=== PATIENT | male | born 1940 | race Caucasian/White ===

== ENCOUNTER 2022-02-01 08:44 | Outpatient (CLI) | payer MEDICARE, SELFPAY ==
[2022-02-01 14:44] LABS: Chloride* 105 mmol/L (96-114); Sodium* 140 mmol/L (135-149)
[2022-02-01 15:43] LABS: Blood Urea Nitrogen* 17 mg/dL (7-30); Calcium* 9.2 mg/dL (8.4-10.6); Carbon Dioxide* 26 mmol/L (20-32); Cholesterol* 111 mg/dL (90-199); Creatinine* 0.8 mg/dL (0.5-1.5); Estimated Glomerular Filt Rate 88 ml/min; Glucose* 132 mg/dL (60-115); HDL Cholesterol* 33 mg/dL (>=40); LDL Cholesterol Calculated 53 mg/dL (<100); Potassium* 4.8 mmol/L (3.6-5.1); Triglycerides* 125 mg/dL (40-149)
== END 2022-02-01 08:45 | disposition home or self-care (01) ==
PROVIDERS: PCP Family Medicine; Visit Provider Family Medicine
DX: Z00.00 Encounter for general adult medical examination without abnormal findings (principal); I10 Essential (primary) hypertension; E78.5 Hyperlipidemia, unspecified; Z13.0 Encounter for screening for diseases of the blood and blood-forming organs and certain disorders involving the immune mechanism; Z13.1 Encounter for screening for diabetes mellitus
CPT/HCPCS: 80048; 80061

== ENCOUNTER 2022-12-27 09:05 | Outpatient (CLI) | payer MEDICARE, SELFPAY | END 2022-12-27 09:06 | disposition home or self-care (01) | LOC: LONREF 09:06 | PROVIDERS: PCP Family Medicine; Visit Provider Family Medicine | DX: Z01.818 Encounter for other preprocedural examination (principal) | CPT/HCPCS: 80048 ==

== ENCOUNTER 2023-01-30 07:56 | Outpatient (CLI) | payer MEDICARE, SELFPAY | END 2023-01-30 07:57 | disposition home or self-care (01) | PROVIDERS: PCP Family Medicine; Visit Provider Family Medicine | DX: I10 Essential (primary) hypertension (principal); E78.5 Hyperlipidemia, unspecified | CPT/HCPCS: 80061 ==

== ENCOUNTER 2024-02-24 07:12 | Emergency (ER) | payer MEDICARE, SELFPAY ==
[2024-02-24 07:15] VITALS: BP 128/86; PULSE 92; RESP 18; TEMP 36.9; O2SAT 96; BMI 31.0
--- NOTE | 2024-02-24 07:36 | CRLHL7_ITS ---
For Patients: As a result of the Century Cures Act, medical imaging exams and procedure reports are released immediately into your electronic medical record. You may view this report before your referring provider. If you have questions, please contact your health care provider. INDICATION: Dizziness. COMPARISON: None. TECHNIQUE: Noncontrast CT head. FINDINGS: Moderate generalized volume loss. Patchy low-attenuation change within the white matter consistent with chronic deep white matter small vessel ischemic changes. No acute intracranial hemorrhage, acute infarct, mass effect, or fracture. No midline shift. No abnormal ventricular dilatation. Normal calvarium and skull base. Visualized paranasal sinuses and mastoid air cells are clear. Dolichoectasia of the basilar artery. Bilateral orbits are unremarkable. Normal appearing sella. Visualized paranasal sinuses mastoid air cells are unremarkable. IMPRESSION: 1. No acute intracranial abnormality 2. Moderate generalized volume loss. Chronic deep white matter small vessel ischemic changes Please note that all CT scans at this facility use dose modulation, iterative reconstruction, and/or weight-based dosing when appropriate to reduce radiation dose to as low as reasonably achievable. Dictated by Elmer Cox MD @ 02/24/2024 8:32:19 AM (Electronically Signed)
--- NOTE | 2024-02-24 07:36 | ED.DIZZY ---
HPI - Dizziness General Date Seen: 02/24/24 <Ha Romy Mainor - Last Filed: 02/24/24 07:56> Chief Complaint: Dizziness/Vertigo <Ha Romy Mainor - Last Filed: 02/24/24 07:56> Stated Complaint: dizzy x's 2 days <Ha Romy Mainor, - Last Filed: 02/24/24 07:56> Time Seen by Provider: 02/24/24 07:34 <Ha Stanton Mainor, - Last Filed: 02/24/24 07:56> Source: patient <Ha Hayward DO - Last Filed: 02/24/24 07:56> Mode of arrival: ambulatory <Ha Romy Mainor - Last Filed: 02/24/24 07:56> Limitations: no limitations <Ha Hayward - Last Filed: 02/24/24 07:56> History of Present Illness HPI Narrative: Patient is an 83-year-old male presenting to emergency department for dizziness. States symptoms started about 2 days ago. Denies having symptoms like this before. He notices his symptoms mostly when he is up moving around and states it is hard from walking a straight line. Symptoms improved greatly when he sits down or lays down. Also notices worsening of the symptoms when he rolls over in bed. Symptoms are and it is worse when he 1st gets up out of bed and may improve over time but never fully go away until he lays back down. Is unsure if he is dehydrated. Does feel like his head has a full feeling to it while laying in the bed. Denies any lightheadedness. Describes the dizziness as feel like he is on a boat. No history of strokes. His states he has been otherwise acting normally. Denies fevers, chills, headache, vision changes, weakness, numbness, chest pain, abdominal pain. Denies any recent viral symptoms. No other concerns noted <Ha Clemensdonte - Last Filed: 02/24/24 07:56> Related Data Home Medications: Home Medications ?Medication ?Instructions ?Recorded ?Confirmed aspirin 81 mg tablet,delayed 81 mg PO DAILY 02/01/22 02/24/24 release atorvastatin 40 mg tablet 40 mg PO .Bedtime 02/01/22 02/24/24 metoprolol tartrate 25 mg tablet 25 mg PO BID 02/01/22 02/24/24 terazosin 5 mg capsule 5 mg PO .Bedtime 02/01/22 02/24/24 Previous Rx's ?Medication ?Instructions ?Recorded metformin 500 mg tablet 500 mg PO BID #180 tabs 01/30/23 <Ha Hayward DO - Last Filed: 02/24/24 07:56> Allergies/Adverse Reactions: Allergies Allergy/AdvReac Type Severity Reaction Status Date / Time No Known Allergies Allergy Unknown Verified 02/24/24 07:20 <Ha Hayward DO - Last Filed: 02/24/24 07:56> Review of Systems Status of ROS: Reports: 10 or more systems reviewed and unremarkable except as noted in History and below <Ha Hayward DO - Last Filed: 02/24/24 07:56> [facility] Medical History: Medical History Hyperlipidemia ?E78.5 - Hyperlipidemia, unspecified (ICD-10) Hypertension ?I10 - Essential (primary) hypertension (ICD-10) History of esophageal dilatation ?Z98.890 - Other specified postprocedural states (ICD-10) <Ha Hayward DO - Last Filed: 02/24/24 07:56> Surgical History: Surgical History S/P right inguinal hernia repair ?Z98.890 - Other specified postprocedural states (ICD-10) ?Z87.19 - Personal history of other diseases of the digestive system (ICD-10) Status post transurethral resection of prostate (02/18/13) ?Z90.79 - Acquired absence of other genital organ(s) (ICD-10) Status post coronary artery stent placement ?Z95.5 - Presence of coronary angioplasty implant and graft (ICD-10) History of excision of Zenker's diverticulum ?Z98.890 - Other specified postprocedural states (ICD-10) ?Z87.19 - Personal history of other diseases of the digestive system (ICD-10) History of arthroplasty of both knees ?Z96.653 - Presence of artificial knee joint, bilateral (ICD-10) <Ha Hayward DO - Last Filed: 02/24/24 07:56> Social History: Social History Smoking Status: Former smoker Do you use any of these nicotine containing products: None Second hand tobacco smoke exposure: No How often do you have a drink containing alcohol: 2-4 times a month How often do you have six or more drinks on one occasion: Never AUDIT-C Alcohol total score: 2 Non-prescribed substance use: denies use service: Yes <Ha Hayward DO - Last Filed: 02/24/24 07:56> Exam Narrative: Exam Narrative: Const: Well-nourished, Well-developed, in mild distress Eyes: PERRL, no conjunctival injection, and symmetrical lids HENT: Atraumatic external nose and ears. Moist mucous membranes. Neck: Symmetric, trachea midline, No thyromegaly. CVS: RRR, No murmurs or gallops. Peripheral pulses 2+ and equal in all extremities RESP: Unlabored respiratory effort. Clear to auscultation bilaterally. GI: Nontender/Nondistended, No rebound or guarding. MSK:Extremities w/o deformity, Normal Active ROM Skin: Warm, Dry. No rashes or lesions. Neuro: Normal Muscle tone, Cranial nerves 2-12 grossly intact, normal sckg-ft-seuf, normal [id number], normal gait, normal strength 5/5 upper lower extremities bilaterally, normal sensation upper and lower extremities bilaterally, normal rapid alternating movements. Psych: Awake, Alert, & Oriented x3. Appropriate mood and affect. <Ha Hayward DO - Last Filed: 02/24/24 07:56> Const: Vital Signs, click to edit/add: Vital Signs - 24 hr 02/24/24 07:15 Temperature 98.4 F Pulse Rate [Pulse Oximeter] 92 Respiratory Rate 18 Blood Pressure [Ri ght Upper Arm] 128/86 Pulse Oximetry 96 Oxygen Delivery Me thod Room Air <Ha Hayward DO - Last Filed: 02/24/24 07:56> Vital Signs, click to edit/add: Vital Signs - 24 hr 02/24/24 07:15 Temperature 98.4 F Pulse Rate [Pulse Oximeter] 92 Respiratory Rate 18 Blood Pressure [Ri ght Upper Arm] 128/86 Pulse Oximetry 96 Oxygen Delivery Me thod Room Air <Kojo Narayan MD - Last Filed: 02/24/24 08:41> Course Reevaluation(s) Reevaluation #1: Patient continues have a mild vertigo. His workup is otherwise unremarkable. He is instructed on the Bran maneuver and will be discharged per my colleagues recommendations. <Kojo Narayan MD - Last Filed: 02/24/24 08:41> Vital Signs Vital signs: Initial Vital Signs Temperature 98.4 F 02/24/24 07:15 Temperature Source Temporal Artery Scan 02/24/24 07:15 Pulse Rate 92 02/24/24 07:15 Respiratory Rate 18 02/24/24 07:15 Blood Pressure 128/86 02/24/24 07:15 Blood Pressure Mean 100 02/24/24 07:15 Blood Pressure Position Sitting 02/24/24 07:15 Pulse Oximetry 96 02/24/24 07:15 Oxygen Delivery Method Room Air 02/24/24 07:15 Vital Signs Temperature 98.4 F 02/24/24 07:15 Pulse Rate 92 02/24/24 07:15 Respiratory Rate 18 02/24/24 07:15 Blood Pressure 128/86 02/24/24 07:15 Pulse Oximetry 96 02/24/24 07:15 Oxygen Delivery Method Room Air 02/24/24 07:15 Temperature 98.4 F 02/24/24 07:15 Pulse Rate 92 02/24/24 07:15 Respiratory Rate 18 02/24/24 07:15 Blood Pressure 128/86 02/24/24 07:15 Pulse Oximetry 96 02/24/24 07:15 Oxygen Delivery Method Room Air 02/24/24 07:15 <Ha Hayward DO - Last Filed: 02/24/24 07:56> Initial Vital Signs Temperature 98.4 F 02/24/24 07:15 Temperature Source Temporal Artery Scan 02/24/24 07:15 Pulse Rate 92 02/24/24 07:15 Respiratory Rate 18 02/24/24 07:15 Blood Pressure 128/86 02/24/24 07:15 Blood Pressure Mean 100 02/24/24 07:15 Blood Pressure Position Sitting 02/24/24 07:15 Pulse Oximetry 96 02/24/24 07:15 Oxygen Delivery Method Room Air 02/24/24 07:15 Vital Signs Temperature 98.4 F 02/24/24 07:15 Pulse Rate 92 02/24/24 07:15 Respiratory Rate 18 02/24/24 07:15 Blood Pressure 128/86 02/24/24 07:15 Pulse Oximetry 96 02/24/24 07:15 Oxygen Delivery Method Room Air 02/24/24 07:15 Temperature 98.4 F 02/24/24 07:15 Pulse Rate 92 02/24/24 07:15 Respiratory Rate 18 02/24/24 07:15 Blood Pressure 128/86 02/24/24 07:15 Pulse Oximetry 96 02/24/24 07:15 Oxygen Delivery Method Room Air 02/24/24 07:15 <Kojo Narayan MD - Last Filed: 02/24/24 08:41> Medications Administered Medications: Discontinued Medications Generic Name Dose Route Start Last Admin Trade Name Freq PRN Reason Stop Dose Admin Sodium Chloride 500 mls @ 1,000 mls/hr 02/24/24 07:34 02/24/24 08:00 0.9 % Sodium Chloride 500 Ml IV 02/24/24 08:03 1,000 mls/hr .Q30M ONE Administration Sodium Chloride 500 mls @ 1,000 mls/hr 02/24/24 07:34 02/24/24 08:01 0.9 % Sodium Chloride 500 Ml IV 02/24/24 08:03 1,000 mls/hr .Q30M ONE Administration <Ha Hayward DO - Last Filed: 02/24/24 07:56> Discontinued Medications Generic Name Dose Route Start Last Admin Trade Name Freq PRN Reason Stop Dose Admin Sodium Chloride 500 mls @ 1,000 mls/hr 02/24/24 07:34 02/24/24 08:00 0.9 % Sodium Chloride 500 Ml IV 02/24/24 08:03 1,000 mls/hr .Q30M ONE Administration Sodium Chloride 500 mls @ 1,000 mls/hr 02/24/24 07:34 02/24/24 08:01 0.9 % Sodium Chloride 500 Ml IV 02/24/24 08:03 1,000 mls/hr .Q30M ONE Administration <Kojo Narayan MD - Last Filed: 02/24/24 08:41> MDM - Dizziness MDM Narrative Medical decision making narrative: Patient is an 83-year-old male presenting to the emergency department for dizziness. The differential diagnosis of vertigo is broad and includes common etiologies such as menieres disease, labyrinthitis, benign positional vertigo, otitis media, etc. More serious etiologies considered include central etiologies such as tumor, intracerebral bleed, dissection, ischemic cerebral vascular accident. Considering symptoms I am more concerned that this is BPPV. Symptoms are mostly with movement and go away at rest. Seems unlikely to be a stroke. Considering he is asymptomatic currently and bed HEENT exam is not warranted. I will still do a head CT to rule out any intracranial abnormalities. Will also do CBC, magnesium, BMP, COVID/flu, troponin, EKG. Will also give him a L of normal saline for possible dehydration. Patient will be signed out to my colleague, Dr. Narayan, pending lab work imaging results. <Ha Hayward DO - Last Filed: 02/24/24 07:56> Lab Data Labs: Lab Results 02/24/24 02/24/24 Range/Units 07:35 07:48 WBC 7.39 (4.50-11.00) K/uL RBC 5.63 (4.30-5.90) m/uL Hgb 16.4 (13.5-17.5) gm/dL Hct 49.5 (37.0-53.0) % MCV 88 (80-100) fL MCH 29 (26-34) pg MCHC 33 (32-36) gm/dL RDW Coeff of Suman 13.5 (11.5-15.5) % Plt Count 247 (140-440) K/uL Neut % (Auto) 64.8 (42.0-72.0) % Lymph % (Auto) 20.8 (20-44) % Cottonwood % (Auto) 9.9 (0.0-11.0) % Eos % (Auto) 3.4 (0.0-7.0) % Baso % (Auto) 0.4 (0.0-3.0) % Neut # (Auto) 4.79 (1.7-7.0) K/uL Lymph # (Auto) 1.54 (0.90-2.90) K/uL [place] # (Auto) 0.70 (0.00-0.90) K/UL Eos # (Auto) 0.25 (0.00-0.50) K/uL Baso # (Auto) 0.03 (0.00-0.30) K/uL Abs Immat Gran (auto) 0.05 (0.00-0.30) K/uL Imm/Tot Granulo (auto) 0.7 % Sodium 136 (135-149) mmol/L Potassium 4.3 (3.6-5.1) mmol/L Chloride 104 (96-114) mmol/L Carbon Dioxide 22 (20-32) mmol/L Anion Gap 10 (7-15) mEq/L BUN 18 (7-30) mg/dL Creatinine 0.9 (0.5-1.5) mg/dL Estimated Creat Clear 54.01 Estimated GFR 84 ml/min Glucose 122 H (60-115) mg/dL Calcium 9.4 (8.4-10.6) mg/dL Magnesium 1.8 (1.5-2.6) mg/dL POC Troponin I 0.01 (0.01-0.04) ng/ml <Ha Hayward, DO - Last Filed: 02/24/24 07:56> Lab Results 02/24/24 02/24/24 Range/Units 07:35 07:48 WBC 7.39 (4.50-11.00) K/uL RBC 5.63 (4.30-5.90) m/uL Hgb 16.4 (13.5-17.5) gm/dL Hct 49.5 (37.0-53.0) % MCV 88 (80-100) fL MCH 29 (26-34) pg MCHC 33 (32-36) gm/dL RDW Coeff of Suman 13.5 (11.5-15.5) % Plt Count 247 (140-440) K/uL Neut % (Auto) 64.8 (42.0-72.0) % Lymph % (Auto) 20.8 (20-44) % Cottonwood % (Auto) 9.9 (0.0-11.0) % Eos % (Auto) 3.4 (0.0-7.0) % Baso % (Auto) 0.4 (0.0-3.0) % Neut # (Auto) 4.79 (1.7-7.0) K/uL Lymph # (Auto) 1.54 (0.90-2.90) K/uL Cottonwood # (Auto) 0.70 (0.00-0.90) K/UL Eos # (Auto) 0.25 (0.00-0.50) K/uL Baso # (Auto) 0.03 (0.00-0.30) K/uL Abs Immat Gran (auto) 0.05 (0.00-0.30) K/uL Imm/Tot Granulo (auto) 0.7 % Sodium 136 (135-149) mmol/L Potassium 4.3 (3.6-5.1) mmol/L Chloride 104 (96-114) mmol/L Carbon Dioxide 22 (20-32) mmol/L Anion Gap 10 (7-15) mEq/L BUN 18 (7-30) mg/dL Creatinine 0.9 (0.5-1.5) mg/dL Estimated Creat Clear 54.01 Estimated GFR 84 ml/min Glucose 122 H (60-115) mg/dL Calcium 9.4 (8.4-10.6) mg/dL Magnesium 1.8 (1.5-2.6) mg/dL POC Troponin I 0.01 (0.01-0.04) ng/ml <Kojo Narayan MD - Last Filed: 02/24/24 08:41> ECG Data Attestation: I personally reviewed and interpreted this ECG as follows: <Ha Hayward DO - Last Filed: 02/24/24 07:56> Prior ECG tracings: not available for review <Ha Hayward DO - Last Filed: 02/24/24 07:56> Interpretation: Normal sinus rhythm with a rate of 79 beats per minute, first-degree AV block, normal QT interval, normal axis, no ST or T-wave abnormalities. <Ha Hayward DO - Last Filed: 02/24/24 07:56> Discharge Plan Discharge Clinical Impression: Benign paroxysmal positional vertigo Qualifiers: Laterality: unspecified laterality Qualified Code(s): H81.10 - Benign paroxysmal vertigo, unspecified ear <Ha Hayward DO - Last Filed: 02/24/24 07:56> Instructions: Vertigo (DC) <DO Darron Galdamez Last Filed: 02/24/24 07:56> Additional Instructions: His symptoms seem most likely related to peripheral vertigo. If symptoms persist follow-up with your primary care provider. Return to emergency department for new or worsening symptoms <DO Darron Galdamez Last Filed: 02/24/24 07:56> Prescriptions: No Action atorvastatin 40 mg tablet 40 mg PO .Bedtime aspirin 81 mg tablet,delayed release (DR/EC) 81 mg PO DAILY metoprolol tartrate 25 mg tablet 25 mg PO BID terazosin 5 mg capsule 5 mg PO .Bedtime metformin 500 mg tablet 500 mg PO BID Qty: 180 0RF <DO Darron Galdamez Last Filed: 02/24/24 07:56> Follow Up/Referrals: Adan Holm MD [Primary Care Provider] - <Ha Hayward DO - Last Filed: 02/24/24 07:56> Stand Alone Forms: [facility] Info Instructions <DO Darron Galdamez Last Filed: 02/24/24 07:56>
--- OUTSIDE RECORDS SUMMARY | 2024-02-24 07:46 | XMS_ITS | Continuity of Care Document ---
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 Name Role Phone Efrain Cox MD Unavailable Unavailable Allergies, Adverse Reactions, Alerts Substance Reaction Status Criticality No Known Allergies Active No Inform ation Medications Medication Instructions Dosage Effective Dates (start - stop) Status Comments omeprazole 20 mg tablet,delayed release take 1 by Oral route every day 1 - Active pravastatin 40 mg tablet take 1 tablet by oral route every day 40 MG - Active aspirin 81 mg tablet,delayed release take 1 tablet by oral route every day 81 MG - Active terazosin 10 mg Cap Take 1 tablet by thierry th daily - Active Toprol XL 50 mg 24 hr Tab Take 1 tablet by mouth daily - Active Procedures Procedure Date Ugi Endo; Dx W/wo Collec Specm 18 Ugi Endo; W/insrt Guide Wire Colonoscopy Flex; W/remov Les- 15 Colonoscopy W/Submucosal Injection Level Iv-surg Path Gross/micro 15 Ugi Endo; W/insrt Guide Wire Advance Directives Directive Yes / No Effective Date File Name No Information Encounters Encounter Description Practice Location Reason(s) For Visit Diagnoses Date Provider Providers Copied on Encounter [facility], [address] [address], [place], [place], [id number], [place] tel:[phone] [facility] No Information 9 Brooke Zuniga. [address] [facility] [address], [facility] [address], [place], [id number], [place]. tel:[phone] [facility], [address] [address], [place], [place], [id number], [place] tel:[phone] [facility] Zenkers diverticulumDysp hagia, unspecifiedCough Diverticulum of esophagus, acquired 8 Brooke Zuniga. [address] [facility] [address], [facility] [address], [place], [id number], [place]. tel:[phone] Referring Provider: Saurabh Holm MD , [address] [place] [address], [address]. tel:[phone] [facility], [address] [address], [place], [place], [id number], [place] tel:[phone] [facility] Schatzki's ringZenker diverticulumEsop hageal obstructionDiver ticulum of esophagus, acquired 6 Val Hennessy. [address], [id number], [place]. tel:[phone] [facility] [place], [address] [address], [facility] [place], [address], [place] tel:[phone] [facility] Colon polypColon Cancer ScreeningPersona l History Colon PolypsBenign Neoplasm Colon Sep-1 5 Jakob Monroy. [address] [facility] [address], [facility] [address], [place], [id number], [place]. tel:[phone] [facility], [address] [address], [place], [place], [address], [place] tel:[phone] [facility] Esoph Stricture/aramis ki RingReflux EsophagitisZenke r's DiverticulumEsop h Stricture/aramis ki RingZenker's DiverticulumRefl ux Esophagitis Sep-0 0 Andrew Covarrubias. [address] [facility] [address], [place], [id number], [place]. tel:[phone] [facility] [address] [address], [place], [id number], [place] tel:[phone] [place] [facility] No Information 5 No Information Family History Family Member Type Diagnosis Age At Onset Sister Problem (finding) Alive and well Son Problem (finding) Alive and well Father Problem (finding) Mother Problem (finding) Daughter Problem (finding) Alive and well Payers Payer name Insurance type Covered republican ID Authoriza tion(s) No Information Social History Type Description Quantity Date Captured Comments Sex Male Smoking Status No Information Chief Complaint And Reason For Visit No Information Reason For Referral Reason For Referral No Information Plan Of Treatment Date Type Action Status Referral Ordered: referred to Sandeep Feliep MD Otolaryngology [facility] ordered Referral Ordered: referred to any ENT ordered History Of Present Illness Encounter Date Complaint History Of Prese nt Illness No Information Functional Status Date Functional Assessmen t No Information Instructions Date Instruction Additional Infor michaelion Colon Cancer Prevention Related to Colon polyp Colon Polyps Related to Colon polyp Assessments Type Assessment Date No Information Patient Care Teams Name Effective Dates (start - stop) Status Members No Information
--- OUTSIDE RECORDS SUMMARY | 2024-02-24 07:46 | XMS_ITS | Clinical Summary ---
Author Organization [employer] [facility] Address [place], [place] [address] Care Team Providers Care Infectious Disease Physician Name Role Phone Adan Holm MD Primary Care Provider [phone] Allergies No known active allergies Medications Medication Sig Dispensed Refills Start Date End Date Status aspirin 81 mg tablet Take 1 tablet by mouth once daily with a meal. 0 12/24/2012 Active metoprolol (LOPRESSOR) 50 mg tablet Take 0.5 tablets by mouth 2 times daily. As previously taking 0 12/24/2012 Active terazosin (HYTRIN) 5 mg capsuleIndications: BPH with urinary obstruction Take 1 capsule by mouth at bedtime. 90 capsule 3 01/11/2016 Active atorvastatin (LIPITOR) 40 mg tablet Take 1 tablet by mouth once daily. 0 07/26/2016 Active metFORMIN (GLUCOPHAGE) 500 mg tablet Take 1,000 mg by mouth once daily with a meal. Active Active Problems Problem Noted Date Diagnosed Date Coronary artery disease due to lipid rich plaque 11/25/2014 BPH (benign prostatic hypertrophy) with urinary obstruction 12/23/2012 Chest pain 12/23/2012 HTN (hypertension) 11/27/2009 Other and unspecified hyperlipidemia 11/27/2009 Resolved Problems Problem Noted Date Diagnosed Date Resolved Date CAD (coronary artery disease) 11/27/2009 11/25/2014 Immunizations Name Administration Dates Next Due Influenza, High-dose Inactivated 01/11/2016 Influenza, IIV3 (Age >=3 years) 01/11/2011 Pneumococcal Poly,23-Valent (Pneumovax) 03/21/20 03 Pneumococcal conj 13-Valent (Prevnar 13) 015 Td (Age >=7 Years) 04/12/2004 Tdap 11/25/2014 Family History Medical History Relation Name Comments Cancer Father 76 Other Mother old age Relation Name Status Comments Father Mother Social History Tobacco Use Types Packs/Day Years Used Date Smoking Tobacco: Former Cigarettes Smokeless Tobacco: Never Tobacco Cessation:Counseling Given: No Comments:quit at age 23 Alcohol Use Standard Drinks/Week Comments Yes 0 (1 standard drink = 0.6 oz pur e alcohol) occasional Social Connections Answer Date Recorded Frequency of Communication with Friends and Fami ly Not on file 04/05/2023 Sex and Gender Information Value Date Recorded Sex Assigned at Not on file Gender Identity Not on file Sexual Orientation Not on file Obstetrics History Last Filed Vital Signs Vital Sign Reading Time Taken Comments Blood Pressure 133/84 03/23/2018 12:22 PM ASSISTANT MANAGER/EMBALMER Pulse 64 03/23/2018 12:22 PM ASSISTANT MANAGER/EMBALMER Temperature 36.2 C (97.2 F) 03/23/2018 12:22 PM ASSISTANT MANAGER/EMBALMER Respiratory Rate 16 03/23/2018 12:22 PM ASSISTANT MANAGER/EMBALMER Oxygen Saturation 94% 03/23/2018 12:22 PM ASSISTANT MANAGER/EMBALMER Inhaled Oxygen Concentration - - Weight 101 kg (222 lb 10.6 oz) 03/23/2018 12:22 PM ASSISTANT MANAGER/EMBALMER Height 175.3 cm (5' 9) 03/23/2018 12:22 PM ASSISTANT MANAGER/EMBALMER Body Mass Index 32.88 03/23/2018 12:22 PM ASSISTANT MANAGER/EMBALMER Plan of Treatment Health Maintenance Due Date Last Done Comments Zoster (shingles) series for age 50+ (1 of 2) 1988 RSV vaccine for adults or pr egnancy (1 - 1-dose 75+ series) 2013 Depression screening for age 12+ 01/10/2017 01/11/20 16 BMI (ht and wt on same day) for age 18+ 07/26/2017 0 07/26/2016, 01/11/2016 Pneumococcal series for age 65+ (3 of 3 - PPSV23 or PCV20) 11/26/2019 11/25/2014, 03/21/2003 COVID-19 vaccine series ( - 2023- season) 2023 Influenza for age 65+ 12/03/2023 01/11/2016, 011 Tetanus booster 11/25/2024 11/25/2014, 04/12/2004 Tdap Completed 11/25/2014 Advance Directives * Full Code (Latest Code Status on File) Date Activated Date Inactivated Comments 03/23/2018 2:31 PM 03/23/2018 5:11 PM * Full Code Date Activated Date Inactivated Comments 12/22/2012 12:57 AM 12/25/2012 3:06 PM Care Teams Infectious Disease Physician Relationship Specialty Start Date End Date Adan Holm MD PCP - General Family Practice 03/20/18
--- OUTSIDE RECORDS SUMMARY | 2024-02-24 07:46 | XMS_ITS | Encounter Summary ---
Author Name [facility] Organization [facility] Address [address] [place] [id number] Care Team Providers Care Admissions Recruiter Name Role Phone DIONNE BABIN Primary Care Provider Tres bowman Insurance Providers: All historical and current Section Date Range: From patient's date of to the date document was created. This section includes the names of all active insurance providers for the patient. Insurance Provider Type of Coverage Plan Name Start of Policy Coverage End of Policy Coverage Group Number Member ID Insurance Provider's Telephone Number Policy Martinez's Name Patient's Relationship to Policy Martinez [facility] (WNR) MEDICARE ADVANTAGE MCR ([facility]) Apr 03, 2019 [id number] LENY DIAZ PATIENT [facility] (WNR) MEDICARE ADVANTAGE MCR ([facility]) Feb 01, 2015 [id number] LENY DIAZ PATIENT Selected Encounter This section includes the information on record at [place] for the Encounter. Date/Time Encounter Type Encounter Description Reason Provider Source Dec 27, 2023 10:55 AM Outpatient Encounter TELEPHONE TRIAGE SHERRILL MARISCAL Encounter Template Text not used by [place] Plan of Treatment: Future Appointments (+ 6 months) and Future Tests (+/- 45 days) The Plan of Treatment section includes future care activities for the patient from all [facility] treatmentfacilities. This section includes future appointments and future orders which are active, pending or scheduled. Future Appointments This section includes appointments that were scheduled to occur 6 months from the date of the Encounter, up to a maximum of 20 appointments. The data comes from all [place] treatment facilities. Appointment Date/Time Appointment Type Appointme nt Facility Name Mar 18, 2024 09:00 AM AMBULATORY - MEDICINE [facility] Social History: Smoking Status (Most current) and Tobacco Use (All prior to encounter date) This section includes the most current, and the historical, smoking and tobacco- related health factors from the [place] facility where the Encounter took place. Current Smoking Status This section includes the most current smoking, or tobacco-related health factor, from the [place] facility where the Encounter took place. Date/Time Current Smoking Status Comment Facil ity Feb 21, 2022 08:30 AM VA-TOBACCO FORMER USER [facility] Tobacco Use History This section includes a history of the smoking, or tobacco-related health factors, that were collected on or before the date of the Encounter. The data comes from the [place] facility where the Encounter took place. Date/Time Smoking Status/Tobacco Use Comment F acility Feb 21, 2022 08:30 AM VA-TOBACCO QUIT 15 YRS OR MORE [facility] Feb 15, 2021 09:30 AM VA-TOBACCO FORMER USER [facility] Feb 15, 2021 09:30 AM VA-TOBACCO QUIT 15 YRS OR MORE [facility] Jul 16, 2019 01:58 PM VA-TOBACCO FORMER USER [facility] Jul 16, 2019 01:58 PM VA-TOBACCO QUIT 15 YRS OR MORE [facility] Jun 11, 2018 09:50 AM VA-TOBACCO FORMER USER [facility] Jun 11, 2018 09:50 AM VA-TOBACCO QUIT 15 YRS OR MORE [facility] Mar 14, 2017 08:18 AM FORMER TOBACCO USER 7Y OR GREATE R [facility] Mar 08, 2016 10:12 AM FORMER TOBACCO USER 7Y OR GREATE R [facility] Mar 02, 2015 10:02 AM FORMER TOBACCO USER 7Y OR GREATE R [facility] Mar 12, 2014 01:40 PM FORMER TOBACCO USER 7Y OR GREATE R [facility] Oct 19, 2012 12:11 PM FORMER TOBACCO USER 7Y OR GREATE R [facility] Nov 24, 2006 07:48 AM FORMER TOBACCO USER 7Y OR GREATE R [facility] Advance Directives: All historical and current Section Date Range: From patient's date of to the date document was created. This section includes ALL of a patient's completed or amended [place] Advance and Rescinded Directives. The entries below indicate that a directive exists for the patient, but an actual copy is not included with this document. The data comes from all [place] facilities. Date Advance Directives Provider Source Nov 24, 2006 ADVANCE DIRECTIVE LENYMYNORDAVID ESTRADAAndrew NGO [facility] Encounter Notes: All associated encounter notes This section contains the clinical notes associated to the Encounter. Date/Time Encounter Note(s) Provider Source Dec 27, 2023 10:55 AM PHARMACY NOTE: LOCAL TITLE: CCC: PHARMACY I STANDARD TITLE: PHARMACY NOTE DATE OF NOTE: DEC 27, 2023@10:55 ENTRY DATE: DEC 27, 2023@10:55:26 AUTHOR: SHERRILL MARISCAL COSIGNER: URGENCY: STATUS: COMPLETED Medication renewal request - non-controlled substance: First request ATORVASTATIN CALCIUM 40MG TAB If clinically appropriate, please refill. Meds to be MAILED OUT Alerts are not monitored regularly by this user due to incoming calls through [facility] ([facility]) Contact Center. Please follow up with local outpatient pharmacy for any immediate or urgent needs. Medications: Active and Recently Outpatient Medications (excluding Supplies): Active Outpatient Medications Status 1) ATORVASTATIN CALCIUM 40MG TAB TAKE ONE TABLET BY ACTIVE MOUTH EVERY DAY FOR CHOLESTEROL 2) METFORMIN HCL 500MG 24HR SA TAB TAKE ONE TABLET BY ACTIVE (S) MOUTH TWICE A DAY FOR DIABETES 3) METOPROLOL TARTRATE 25MG TAB TAKE ONE TABLET BY MOUTH ACTIVE (S) TWICE A DAY FOR BLOOD PRESSURE 4) TERAZOSIN HCL 5MG CAP TAKE ONE CAPSULE BY MOUTH DAILY ACTIVE (S) FOR BENIGN PROSTATIC HYPERPLASIA (BPH) Active Non-VA Medications Status 1) Non-VA ASPIRIN 81MG EC TAB 81MG MOUTH ACTIVE 5 Total Medications Future appointments: No future appointments /tish/ SHERRILL MARISCAL CPHT V23 [facility] FINANCIAL ANALYSIS MANAGER Signed: 12/27/2023 10:56 Receipt Acknowledged By: 12/28/2023 14:36 /es/ Dionne Babin MD Primary Care Staff Physician 12/28/2023 08:53 /es/ SHERRILL SINGH LPN [facility]
--- OUTSIDE RECORDS SUMMARY | 2024-02-24 07:46 | XMS_ITS | Continuity of Care Document ---
Author Name [facility] Organization [facility] Care Team Providers Care Flat Finisher Name Role Phone [facility] Unavailable Unavailable Problems Combined list of problems from Department of Defense and Veterans Affairs facilities. It does not include entries that were removed or entered in error. Problem Status Onset Date Problem Type Date of Resolution Comments Source Benign prostatic hyperplasia Active Condition Mar 02, 2015 Entered By: REAL GOMEZ Comment: 2012 Laser TURP [facility] Coronary arteriosclerosis Active Condition Mar 02 5 Entered By: REAL GOMEZ Comment: 2012 STEMI 2 BMStents [facility] Diabetes mellitus Active Condition [facility] Dysphagia Active Condition Mar 02 15 Entered By: REAL GOMEZ Comment: H/O esophageal stricture last dilated ~2005 [facility] Exudative age-related macular degeneration Active Condition Mar 02, 2015 Entered By: REAL GOMEZ Comment: left eye - Avastatin injections [facility] Hyperlipidemia [facility] Malignant melanoma Active Condition [facility] Osteoarthritis Active Condition Jul 032019 Entered By: DEDRICK VANESSA Comment: S/P right total knee in 2019 Entered By: DEDRICK VANESSA Comment: S/P right TKA revision in 2019 Entered By: DEDRICK VANESSA Comment: S/P left TKA in 2016 [facility] Umbilical hernia Active Condition [facility] Zenker's diverticulum Active Condition Mar 08, 2016 Entered By: REAL GOMEZ Comment: EGD non-VA 2015 [facility] BPH W/URINARY OBSTRUCTION Inactive Condition 03/02/2015 Mar 08, 2013 Entered By: REAL GOMEZ Comment: Laser TURP 02/2013 [facility] Esophageal Stricture (ICD-9-CM 530.3) Inactive Condition 03/02/2015 [facility] Hyperlipidemia Inactive Condition 03/02/[address] [facility] Diagnosis: ICD-10-CM E11.9 Type 2 diabetes mellitus without complications Active Diagnosis [facility] Medications Combined list of outpatient medications from Department of Defense and Veterans Affairs facilities.Medications provided include 1) outpatient medications from the last 15 months, and 2) patient-reported medications. Medication Details Route Status Patient Instructions Prescription Expires Prescription Number Last Dispense Date Ordering Provider Order Date Order Qty Source ASPIRIN 81MG TAB,EC TAKE ONE TABLET BY MOUTH ORAL ACTIVE Vikas GOMEZ 2012 [facility] ATORVASTATI N [place] 40MG TAB TAKE ONE TABLET BY MOUTH EVERY DAY FOR CHOLESTE ROL ORAL ACTIVE 12/28/2024 [id number] 4 [facility] 90 [facility] ATORVASTATI N [place] 40MG TAB TAKE ONE TABLET BY MOUTH EVERY DAY FOR CHOLESTE ROL ORAL DISCONT INUED 01/14/2024 [id number] 4 [facility] 2022 90 [facility] ATORVASTATI N [place] 40MG TAB TAKE ONE TABLET BY MOUTH EVERY DAY FOR CHOLESTE ROL ORAL DISCONT INUED 02/22/2023 [id number] 3 [facility] 2021 90 [facility] METFORMIN HCL 500MG 24HR TAB,SA TAKE ONE TABLET BY MOUTH TWICE A DAY FOR DIABETES ORAL ACTIVE 03/30/2024 [id number] 4 [facility] 2023 60 [facility] METFORMIN HCL 500MG 24HR TAB,SA TAKE ONE TABLET BY MOUTH TWICE A DAY FOR DIABETES ORAL DISCONT INUED 03/30/2024 [id number] 4 [facility] 2023 180 [facility] METOPROLOL TARTRATE 25MG TAB TAKE ONE TABLET BY MOUTH TWICE A DAY FOR BLOOD PRESSURE ORAL ACTIVE 03/30/2024 [id number] 4 [facility] 2022 180 [facility] TERAZOSIN HCL 5MG CAP TAKE ONE CAPSULE BY MOUTH DAILY FOR BENIGN PROSTATI C HYPERPLA FIDEL (BPH) ORAL ACTIVE 03/07/2024 [id number] 4 [facility] 2022 90 [facility] TERAZOSIN HCL 5MG CAP TAKE ONE CAPSULE BY MOUTH DAILY FOR BENIGN PROSTATI C HYPERPLA FIDEL (BPH) ORAL DISCONT INUED 02/22/2023 [id number] 3 [facility] ARIE 2021 90 [facility] Allergies, Adverse Reactions, Alerts Combined list of allergies from Department of Defense and Veterans Affairs facilities. It does not include entries that were removed or entered in error. Substance Category Reaction Severity Reaction type Status Date Reported Comments Source SIMVASTATIN Propensity to adverse reactions to drug (finding) Muscle pain active 3 [facility] Immunizations Combined list of available immunizations from the Department of Defense and Veterans Affairs facilities. 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 Status Comments Source COVID-19 (MODERNA), MRNA, LNP-S, PF, 50 MCG/0.5 ML (AGES 12+ YEARS) 2022 312 complet [facility] INFLUENZA, HIGH-DOSE, QUADRIVALENT 2022 197 complet [facility] INFLUENZA, HIGH-DOSE, QUADRIVALENT 2021 197 complet ed [facility] INFLUENZA, UNSPECIFIED FORMULATION 2021 88 complet [facility] COVID-19 (PFIZER), MRNA, LNP-S, BIVALENT BOOSTER, PF, 30 MCG/0.3 ML DOSE 1 2021 300 complet [facility] INFLUENZA, HIGH-DOSE, QUADRIVALENT 2020 197 complet [facility] ZOSTER RECOMBINANT 2 2020 187 complet ed [facility] COVID-19 (MODERNA), MRNA, LNP-S, PF, 100 MCG/0.5 ML DOSE 3 2020 207 complet ed [facility] COVID-19 (MODERNA), MRNA, LNP-S, PF, 100 MCG/0.5 ML DOSE 2 2020 207 complet [facility] COVID-19 (MODERNA), MRNA, LNP-S, PF, 100 MCG/0.5 ML DOSE 1 2020 207 complet [facility] INFLUENZA, HIGH-DOSE, QUADRIVALENT 2019 197 complet ed [facility] ZOSTER RECOMBINANT 1 2019 187 complet ed [facility] INFLUENZA, HIGH DOSE SEASONAL 2018 135 complet ed [facility] INFLUENZA, HIGH DOSE SEASONAL 2018 135 complet ed [facility] INFLUENZA, HIGH DOSE SEASONAL 2017 135 complet ed [facility] INFLUENZA, HIGH DOSE SEASONAL 2017 135 complet ed [facility] TD (ADULT), 2 LF TETANUS TOXOID, PRESERVATIVE FREE, ADSORBED 2017 09 complet ed [facility] INFLUENZA, HIGH DOSE SEASONAL 2016 135 complet ed [facility] INFLUENZA, HIGH DOSE SEASONAL 2016 135 complet ed [facility] INFLUENZA, HIGH DOSE SEASONAL 2015 135 complet ed [facility] INFLUENZA, HIGH DOSE SEASONAL 2015 135 complet ed [facility] INFLUENZA, HIGH DOSE SEASONAL 2014 135 complet ed [facility] PNEUMOCOCCAL CONJUGATE PCV 13 2014 133 complet ed [facility] PNEUMOCOCCAL CONJUGATE PCV 13 2014 133 complet ed [facility] TDAP 2014 115 complet ed [facility] INFLUENZA, UNSPECIFIED FORMULATION 2013 88 complet ed [facility] INFLUENZA, HIGH DOSE SEASONAL 2012 135 complet ed [facility] INFLUENZA, UNSPECIFIED FORMULATION 2012 88 complet ed [facility] ZOSTER LIVE 2011 121 complet ed [employer] Lot# [id number] Exp. 3 [facility] INFLUENZA, UNSPECIFIED FORMULATION 2011 88 complet ed [facility] INFLUENZA, UNSPECIFIED FORMULATION 2010 88 complet ed [facility] INFLUENZA, SEASONAL, INJECTABLE, PRESERVATIVE FREE 2010 140 complet ed [facility] TDAP 2008 115 complet ed [place] stated he up to date [facility] INFLUENZA, UNSPECIFIED FORMULATION 2007 88 complet ed [facility] TD(ADULT) UNSPECIFIED FORMULATION 2006 139 complet ed [facility] INFLUENZA (HISTORICAL) 2005 88 complet ed [facility] INFLUENZA (HISTORICAL) 2004 88 complet ed [facility] PNEUMOCOCCAL, UNSPECIFIED FORMULATION 2004 109 complet ed [facility] TD (ADULT), 2 LF TETANUS TOXOID, PRESERVATIVE FREE, ADSORBED 2004 09 complet ed [facility] INFLUENZA, SEASONAL, INJECTABLE 2002 141 complet ed [facility] PNEUMOCOCCAL POLYSACCHARID E PPV23 2002 33 complet ed [facility] Encounters Combined list of: 1) Encounters from Department of Veterans Affairs facilities going back up to thelast 18 months. 2) Encounters from the Department of [facility] facilities going back up to 280 months. Location Location Details Encounter Type Encounter Number Reason For Visit Attending Provider ADM Date DC Date Status Disposition Source [facility] Outpatient Encounter [id number] 01/06 [facility] Outpatient Encounter [id number] 02/13 [facility] Outpatient Encounter [id number] 02/13 [facility] Outpatient Encounter [id number] Diagnos is: ICD-10- CM E11.9 Type 2 diabete s mellitu s without complic ations< br/> Micheline DONNELLY 03/30 [facility] Outpatient Encounter [id number] Andrade MARISCAL 12/26 [facility] Social History Combined list of available smoking, tobacco, and other social history from Department of Defense and [facility] facilities. Social History Type Response Date Comment Sourc e Tobacco smoking status NHIS [place] FORMER USER 02/21/2022 [facility] of [facility]2022 [facility] History of tobacco use [place]-TOBACCO FORMER USER 02/15/2021 [facility] History of tobacco use [place]-TOBACCO FORMER USER 07/16/2019 [facility] History of tobacco use [facility]-TOBACCO FORMER USER 06/11/2018 [facility] History of tobacco use FORMER TOBACCO US ER 7Y OR GREATER 03/14/2017 [facility] History of tobacco use FORMER TOBACCO US ER 7Y OR GREATER 03/08/2016 [facility] History of tobacco use FORMER TOBACCO US ER 7Y OR GREATER 03/02/2015 [facility] History of tobacco use FORMER TOBACCO US ER 7Y OR GREATER 03/12/2014 [facility] History of tobacco use FORMER TOBACCO US ER 7Y OR GREATER 10/19/2012 [facility] History of tobacco use FORMER TOBACCO US ER 7Y OR GREATER 11/24/2006 [facility] Plan of Care List of future care activities from Department of Veterans Affairs facilities. Additional future care activities may be listed in the Assessment and Plan section. Date/Time Care Activity Care Activity Detail Facili ty 03/18/2024 AMBULATORY - MEDICINE AMBULATORY - MEDICI [facility] Advance Directives List of completed, amended, or rescinded Advance Directives on record at Department of Veterans Affairs facilities. An actual copy of the Directive is not included. Date Advance Directive Provider Source 11/24/2006 ADVANCE DIRECTIVE DAVID FAROOQ [facility]
[2024-02-24 08:00] VITALS: BP 134/86; PULSE 64; RESP 18; O2SAT 95
[2024-02-24] MEDS: 0.9 % SODIUM CHLORIDE 500 ML 500 ML 1000 ML IV ×2 (08:00→08:01)
[2024-02-24 08:02] LABS: Basophils Absolute Auto 0.03 K/uL (0.00-0.30); Basophils Percent Auto 0.4 % (0.0-3.0); Eosinophils Absolute Auto 0.25 K/uL (0.00-0.50); Eosinophils Percent Auto 3.4 % (0.0-7.0); Hematocrit 49.5 % (37.0-53.0); Hemoglobin* 16.4 gm/dL (13.5-17.5); Immature Granulocytes Abs Auto 0.05 K/uL (0.00-0.30); Immature Granulocytes Pct Auto 0.7 %; Lymphocytes Absolute Auto 1.54 K/uL (0.90-2.90); Lymphocytes Percent Auto 20.8 % (20-44); Mean Corpuscular HGB Conc 33 gm/dL (32-36); Mean Corpuscular Hemoglobin 29 pg (26-34); Mean Corpuscular Volume 88 fL (80-100); Monocytes Percent Auto 9.9 % (0.0-11.0); Neutrophils Absolute Auto 4.79 K/uL (1.7-7.0); Neutrophils Percent Auto 64.8 % (42.0-72.0); Platelet Count* 247 K/uL (140-440); RDW Coefficient of Variation % 13.5 % (11.5-15.5); Red Blood Count 5.63 m/uL (4.30-5.90); White Blood Count* 7.39 K/uL (4.50-11.00)
[2024-02-24 08:05] LABS: Troponin, Point-of-Care* 0.01 ng/ml (0.01-0.04)
[2024-02-24 08:07] LABS: Slide Review Reflex No
[2024-02-24 08:20] LABS: Chloride* 104 mmol/L (96-114)
[2024-02-24 08:21] LABS: Potassium* 4.3 mmol/L (3.6-5.1); Sodium* 136 mmol/L (135-149)
[2024-02-24 08:23] LABS: Anion Gap 10 mEq/L (7-15); Carbon Dioxide* 22 mmol/L (20-32); Creatinine* 0.9 mg/dL (0.5-1.5); Est. Creatinine Clearance* 54.01; Estimated Glomerular Filt Rate 84 ml/min
[2024-02-24 08:24] LABS: Blood Urea Nitrogen* 18 mg/dL (7-30); Calcium* 9.4 mg/dL (8.4-10.6); Glucose* 122 mg/dL (60-115); Magnesium* 1.8 mg/dL (1.5-2.6)
[2024-02-24 08:30] VITALS: BP 140/82; PULSE 58; RESP 16; O2SAT 90
[2024-02-24 08:41] LABS: PCR FLU A Negative PCR FLU A (Negative); PCR FLU B Negative PCR FLU B (Negative); SARS PCR* Negative SARS-CoV-2 (Negative)
== END 2024-02-24 08:58 | disposition home or self-care (01) ==
PROVIDERS: Emergency Provider Student in an Organized Health Care Education/Training Program; PCP Family Medicine
DX: H81.13 Benign paroxysmal vertigo, bilateral (principal)
CPT/HCPCS: 36415; 70450; 80048; 83735; 84484; 85025; 87631; 93005; 99284; J7030

== ENCOUNTER 2024-12-17 08:39 | Outpatient (CLI) | payer MEDICARE, SELFPAY | END 2024-12-17 08:40 | disposition home or self-care (01) | PROVIDERS: PCP Family Medicine; Visit Provider Family Medicine | DX: E13.9 Other specified diabetes mellitus without complications (principal); E78.2 Mixed hyperlipidemia | CPT/HCPCS: 80053; 80061 ==